=== PATIENT | female | born 1995 | race Two or more races ===

== ENCOUNTER 2016-10-07 21:45 | Emergency (ER) | payer MEDICAID ==
[~2016-10-07] VITALS: Ht 172.7 cm; Wt 47.6 kg
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
--- NOTE | 2016-10-07 22:19 | NUR ---
ICE PACK APPLIED TO LT EYE. PT PLACED IN HARD C-COLLAR FOR C-SPINE PRECAUTIONS. SENT TO CT VIA [employer].
[2016-10-07] MEDS ORDERED: HYDROCODONE/APAP 5/325MG 1 EACH TABLET PO ONE (22:30)
[2016-10-07] MEDS ORDERED: HYDROCODONE/APAP 5/325MG 1 EACH TABLET ONE (22:33)
--- NOTE | 2016-10-07 22:40 | NUR ---
pt back fr CT, on continuous hard c-collar. EMT at bedside for wound cleaning lt eye and face w/ NS. medicated as ordered for pain.
--- NOTE | 2016-10-07 22:54 | NUR ---
JOVANA Officer Kaia at bedside talking w/ pt.
[2016-10-07] MEDS ORDERED: ONDANSETRON HCL/PF 4 MG/2 ML VIAL ONE (23:12)
[2016-10-07] MEDS ORDERED: IV NS 0.9% 1,000 ML ONE (23:12)
[2016-10-07] MEDS ORDERED: CEFAZOLIN 1 GM ONE (23:12)
[2016-10-07] MEDS ORDERED: IV SET PRIMARY 1 EA INFUS.SET MC ONE (23:12)
[2016-10-07] MEDS ORDERED: MORPHINE SULFATE INJ 4 MG/ML DISP.SYRIN ONE (23:12)
[2016-10-07] MEDS ORDERED: IV D5W 50 ML IV ONE (23:13)
[2016-10-07] MEDS ORDERED: SECONDARY IV SET 1 EA INFUS.SET MC ONE (23:13)
--- NOTE | 2016-10-07 23:13 | NUR ---
IVHL started, labs drawn & sent. pt medicated as ordered for continued lt facial pain, appears anxious, crying, on continuous monitoring w/ hard c-collar in place. pt mother at bedside.
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
[2016-10-07 23:25] LABS: BASOPHILS % (AUTO) 0.4 % (0.0-2.0); EOSINOPHILS # (AUTO) 0.1 /CMM (0.0-0.7); EOSINOPHILS % (AUTO) 0.8 % (0.0-6.0); HEMATOCRIT 40 % (33-45); HEMOGLOBIN 13.6 g/dL (11.5-14.8); LYMPHOCYTES % (AUTO) 15.9 % (20.0-44.0); MEAN CORPUSCULAR HEMOGLOBIN 28 PG (26.0-33.0); MEAN CORPUSCULAR HGB CONC 34 g/dl (31.0-36.0); MEAN CORPUSCULAR VOLUME 83 fL (82-100); MONOCYTES # (AUTO) 0.6 /CMM (0.1-1.30); MONOCYTES % (AUTO) 4.9 % (2.0-12.0); NEUTROPHILS # (AUTO) 9.6 /CMM (1.8-8.9); PLATELET COUNT (AUTO) 306 /CMM (150-450); RDW COEFFICIENT OF VARIATION 13.3 (11.5-15.0); RED BLOOD CELL COUNT(AUTO) 4.87 MIL/uL (4.0-5.2); WHITE BLOOD COUNT (AUTO) 12.3 K/uL (4.3-11.0)
[2016-10-07] MEDS ORDERED: MORPHINE SULFATE INJ 2 MG/ML DISP.SYRIN IV ONE (23:30)
[2016-10-07] MEDS ORDERED: ONDANSETRON HCL/PF 4 MG/2 ML VIAL IVP ONE (23:30)
[2016-10-07] MEDS ORDERED: IV NS 0.9% 1,000 ML BAG IV ONE (23:30)
[2016-10-07] MEDS ORDERED: CEFAZOLIN 1 GM in IV D5W 50 ML IV ONE (23:30)
[2016-10-07 23:39] LABS: CALCIUM, SERUM 9.2 mg/dL (8.5-10.1); CREATININE 0.9 mg/dL (0.6-1.3); POTASSIUM 3.1 mmol/L (3.5-5.1)
--- NOTE | 2016-10-07 23:42 | NUR ---
CALLED [facility], SPOKE WITH NEMESIO, PRESENTED PT, FAXED FACESHEET TO [phone]
[2016-10-07 23:45] LABS: ALBUMIN 4.2 g/dL (3.4-5.0); BILIRUBIN,TOTAL 0.3 mg/dL (0.2-1.0)
--- NOTE | 2016-10-07 23:51 | NUR ---
CALLED [facility], SPOKE WITH CHARGE NURSE IN ER, SAID THEY DO NOT HAVE OPTHAMOLOGY.
[2016-10-07 23:52] LABS: INR 1.11 (0.87-1.13); PROTHROMBIN TIME 11.9 SECS (9.5-12.7)
--- NOTE | 2016-10-07 23:53 | NUR ---
CALLED [facility] TRANSFER LINE, SPOKE WITH SALEEM, SAID THEY DO NOT HAVE OPTHAMOLOGY.
--- NOTE | 2016-10-08 | NUR ---
called Dr Quinones for opto consult. Message left for electrician second physician.
--- NOTE | 2016-10-08 00:02 | NUR ---
CALLED [facility] TRANSFER [facility], SPOKE WITH VALENTINO, SHE SAID THEY DO NOT HAVE OPTHAMOLOGY.
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
--- NOTE | 2016-10-08 00:06 | NUR ---
CALLED [facility] ([phone]) TO ATTEMPT TRANSFER TO [facility] FOR HIGHER LEVEL CARE OPTHAMOLOGY. SPOKE WITH KASSY BERNARD WHOM STATED NEITHER [facility] OR ANY OF [facility] HAVE ANY HIGHER LEVEL OF CARE OPTHAMOLOGICAL SERVICES. SUGGESTED TRYING [facility].
--- NOTE | 2016-10-08 00:09 | NUR ---
CALLED [facility], SPOKE WITH NURSING SUP. SEBASTIAN, SHE SAID THEY DO NOT HAVE OPTHAMOLOGY
[2016-10-08] MEDS ORDERED: TDAP [DIPH/PERTUSSIS/TET] 0.5 ML VIAL IM ONE ×2 (00:15→00:30)
--- NOTE | 2016-10-08 00:18 | NUR ---
pt medically cleared by KALEB Foster of hard c-collar, ambulatory w/ steady gait to restroom, resp even & unlabored, nad noted. On continuous monitoring. Awaiting transfer and accepting MD for opthalmology. pt updated on status.
--- NOTE | 2016-10-08 00:25 | NUR ---
CALLED [facility] ([phone]; press #3 for ER) AND SPOKE WITH MADHAV TO TRANSFER FOR HIGHER LEVEL OF CARE OPTHAMOLOGY. PER MADHAV, THERE IS NO ON-CALL OPTHAMOLOGY AVAILBLE TONIGHT. DR. SALDAÑA NOTIFIED.
--- NOTE | 2016-10-08 00:29 | NUR ---
CALLED [facility], SPOKE WITH NURSING SUP. LEWIS, SHE SAID THEY DO NOT HAVE OPTHAMOLOGY.
[2016-10-08] MEDS ORDERED: HYDROMORPHONE 1 MG/1 ML DISP.SYRIN IV ONE (00:30)
[2016-10-08] MEDS ORDERED: HYDROMORPHONE 1 MG/1 ML DISP.SYRIN ONE (00:35)
--- NOTE | 2016-10-08 00:36 | NUR ---
CALLED [facility], SPOKE WITH NURSING CHOCOLATE PACKER EDWARD, SHE SAID THEY DO NOT HAVE A PIECE OF EQUIPMENT THAT IS NEEDED TO FIX A RUPTURED GLOBE.
--- NOTE | 2016-10-08 00:39 | NUR ---
pt medicated as ordered for continued lt facial pain. eyepatch applied to lt eye w/ icepack.
--- NOTE | 2016-10-08 00:52 | NUR ---
CALLED [facility], SPOKE WITH JORDANA, PRESENTED PT, FAXED FACESHEET TO [phone]
--- NOTE | 2016-10-08 00:57 | NUR ---
PAGED AT [phone], REGARDING [facility]
--- NOTE | 2016-10-08 01:00 | NUR ---
CALLED [facility]OSPITAL DOES NOT HAVE OPTHAMOLOGY POLLUTION CONTROL CHEMIST, MD SALDAÑA MADE AWARE
--- NOTE | 2016-10-08 01:04 | NUR ---
CALLED [facility] ([phone]) TO FIND OPTHAMOLOGY FOR HIGHER LEVEL OF CARE. OFFICE CLOSED, ONLY OPEN 8A-5P.
--- NOTE | 2016-10-08 01:05 | NUR ---
[facility] CALLED AND WAS TOLD THEY DO NOT HAVE OPTHAMOLOGY CRATE OPENER, MD SALDAÑA MADE AWARE
--- NOTE | 2016-10-08 01:10 | NUR ---
CALLED [facility], SPOKE WITH NURSING NEWS WIRE PHOTO OPERATOR WARD SARGENT, SHE SAID THEY HAVE NO OPTHAMOLOGIST DIRECTOR OF IT OPERATIONS DEONDRE
--- NOTE | 2016-10-08 01:25 | NUR ---
CALLED [facility] ([phone]) TO ATTEMPT TRANSFER FOR HIGHER LEVEL OF CARE OPTHAMOLOGY. SPOKE WITH ER CHARGE NURSE ISIDRO WHOM PROVIDED ME WITH [facility] TRANSFER CENTER FOR OPTHAMOLOGICAL HIGHER LEVEL CARE.
--- NOTE | 2016-10-08 01:30 | NUR ---
CALLED [facility] TRANSFER LINE ([phone]) AND SPOKE WITH SOLE. PROVIDED SOLE WITH PT'S CASE. SOLE STATED HE WILL PAGE OPTHAMOLOGY TO CALL DR. SALDAAÑ.
--- NOTE | 2016-10-08 02:15 | NUR ---
CALLED [facility] AND FAXED UPDATED FACE SHEET TALKED TO ELIDA
--- NOTE | 2016-10-08 02:18 | NUR ---
pt ambulatory w/ steady gait to restroom, resp even & unlabored, nad noted.
--- NOTE | 2016-10-08 02:52 | NUR ---
[place] [place] [facility]. [place], opthalmologist on phone w/ Dr. Bates.
--- NOTE | 2016-10-08 03:01 | NUR ---
RECEIVED [facility] TRANSFER INFO: GOING TO [facility] ER ACCEPTED BY DR. DOHERTY CALL FOR REPORT [facility] #[id number]
--- NOTE | 2016-10-08 03:04 | NUR ---
pt resting comfortably in bed w/ resp even & unlabored, nad noted. On continuous monitoring. pt mother at bedside. Awaiting transfer.
--- NOTE | 2016-10-08 03:05 | NUR ---
TALKED TO LUISITO FROM [facility] FOR TRANSPORT 30 MINUTES
--- NOTE | 2016-10-08 03:14 | NUR ---
Attempt to call [facility] x3, busy signal. Will try again.
--- NOTE | 2016-10-08 03:22 | NUR ---
Called [facility], busy signal.
--- NOTE | 2016-10-08 03:23 | NUR ---
Consent for transfer to [facility] signed and received by pt.
--- NOTE | 2016-10-08 03:29 | NUR ---
Called [facility], busy signal. Unable to get through.
--- NOTE | 2016-10-08 03:33 | NUR ---
Report given to Terri Godinez for pt transfer via BLS ambulance to [facility] for JENNIFER.
[2016-10-08 03:37] VITALS: BP 131/81
--- NOTE | 2016-10-08 03:51 | NUR ---
Attempt to call [facility], still continue to get busy signal.
== END 2016-10-08 03:48 | disposition short-term general hospital (02) ==
LOC: ER 21:49
DX: S02.82XA Fracture of other specified skull and facial bones, left side, initial encounter for closed fracture (principal); S02.2XXA Fracture of nasal bones, initial encounter for closed fracture; S05.32XA Ocular laceration without prolapse or loss of intraocular tissue, left eye, initial encounter; V43.52XA Car driver injured in collision with other type car in traffic accident, initial encounter; Y93.89 Activity, other specified; Y92.89 Other specified places as the place of occurrence of the external cause; Y99.9 Unspecified external cause status
CPT/HCPCS: 70450; 70486; 72125; 80048; 80076; 85025; 85730; 90471; 90715; 96365; 96375; 99285; A4606; A6402 ×2; A6410; J0690; J1170; J2270; J2405; J7030; J7060; L0172; Z7610